=== PATIENT | female | born 1985 | race Caucasian/White ===

== ENCOUNTER 2018-07-06 14:02 | Emergency (ER) | payer OTHER ==
[~2018-07-06] VITALS: Ht 175.3 cm; Wt 136.4 kg
[~2018-07-06 14:02] MED LIST: NOCURR
[2018-07-06] MEDS ORDERED: IBUPROFEN 800 MG TABLET PO ONE (16:00)
[2018-07-06 16:39] VITALS: BP 122/77
== END 2018-07-06 16:42 | disposition home or self-care (01) ==
LOC: EMS 14:02
DX: S71.101A Unspecified open wound, right thigh, initial encounter (principal); L03.115 Cellulitis of right lower limb; F17.210 Nicotine dependence, cigarettes, uncomplicated; W57.XXXA Bitten or stung by nonvenomous insect and other nonvenomous arthropods, initial encounter; Y93.89 Activity, other specified; Y92.89 Other specified places as the place of occurrence of the external cause; Y99.8 Other external cause status